=== PATIENT | male | born 1975 | race Caucasian/White ===

== ENCOUNTER 2018-07-21 18:09 | Emergency (ER) | payer BC ==
[2018-07-21] MEDS: Sodium Chloride 0.9% 10 ML Syringe FLUSH PRN ×2 (18:55→20:11)
[2018-07-21] MEDS ORDERED: Sodium Chloride 0.9% 1,000 ML IV ONE (19:46)
[2018-07-21] MEDS ORDERED: Diatrizoate Meglumine/Diatrizoate Sodium 37% 120 ML Bottle PO ONE (19:51)
[2018-07-21] MEDS ORDERED: Iohexol 647 MG/ML 100 ML Bottle IVPUSH ONE (19:51)
--- NOTE | 2018-07-21 20:44 | EDM.PDOC ---
ED HPI GENERAL MEDICAL PROBLEM - General Chief Complaint: Abdominal Pain Stated Complaint: LOWER LEFT ABDOMINAL PAIN Time Seen by Provider: 07/21/18 18:42 Source of Information: Reports: Patient History Limitations: Reports: No Limitations - History of Present Illness INITIAL COMMENTS - FREE TEXT/NARRATIVE: 42-year-old male presents for evaluation and treatment of left lower quadrant abdominal pain. Patient reports that the pain started last evening. Reports a gradual onset. Reports feeling slightly chilled today. Denies any fevers, nausea , vomiting, diarrhea or bloody stools. He denies any urinary symptoms including no dysuria, hematuria or any back pain. States he's had several bowel movement this morning, last around 10 AM. States he never had anything like this before. He's never had a colonoscopy. No previous abdominal surgeries. Duration: Day(s): (2) Left Lower Abdomen Pain Score (Numeric/FACES): 4 - Related Data Allergies Allergy/AdvReac Type Severity Reaction Status Date / Time No Known Allergies Allergy Verified 07/21/18 18:24 Home Meds: Home Meds Calcium Carbonate/Vitamin D3 [Calcium 250+D] 1 each PO DAILY 07/21/18 [History] Multivitamin [Daily Marisabel] 1 tab PO DAILY 07/21/18 [History] Past Medical History - Past Health History Medical/Surgical History: Denies Medical/Surgical History Cardiovascular History: Reports: None Respiratory History: Reports: None Gastrointestinal History: Reports: None Genitourinary History: Reports: None Musculoskeletal History: Reports: Back Pain, Chronic Neurological History: Reports: None Psychiatric History: Reports: None Endocrine/Metabolic History: Reports: None Hematologic History: Reports: None Immunologic History: Reports: None Oncologic (Cancer) History: Reports: None Dermatologic History: Reports: None - Infectious Disease History Infectious Disease History: Reports: None - Past Surgical History HEENT Surgical History: Reports: Adenoidectomy, Oral Surgery, Tonsillectomy Social & Family History - Family History Family Medical History: Noncontributory Cardiac: Reports: Hypertension Oncologic: Reports: Breast, Colon - Tobacco Use Years of Tobacco use: 22 Packs/Tins Daily: 0.2 - Caffeine Use Caffeine Use: Reports: Coffee - Recreational Drug Use Recreational Drug Use: No ED ROS GENERAL - Review of Systems Review Of Systems: See Below Constitutional: Reports: Chills. Denies: Fever, Decreased Appetite GI/Abdominal: Reports: Abdominal Pain (LLQ). Denies: Bloody Stool, Diarrhea, Hematochezia, Melena, Nausea, Vomiting : Reports: No Symptoms. Denies: Dysuria, Hematuria Musculoskeletal: Denies: Back Pain ED EXAM, GI/ABD - Physical Exam Exam: See Below Exam Limited By: No Limitations General Appearance: Alert, WD/WN, No Apparent Distress Respiratory/Chest: No Respiratory Distress, Lungs Clear, Normal Breath Sounds Cardiovascular: Normal Peripheral Pulses, Regular Rate, Rhythm, No Murmur GI/Abdominal Exam: Normal Bowel Sounds, Soft, Guarding (LLQ), Rebound, Tender ( LLQ) Neurological: Alert, Oriented, Normal Cognition Psychiatric: Normal Affect, Normal Mood Skin Exam: Warm, Dry, Normal Color Course - Vital Signs Last Recorded V/S: Last Vital Signs Temp 98.0 F 07/21/18 18:28 Pulse 76 07/21/18 18:28 Resp 16 07/21/18 18:28 BP 128/85 07/21/18 18:28 Pulse Ox 97 07/21/18 18:28 - Orders/Labs/Meds Labs: Laboratory Tests 07/21/18 07/21/18 07/21/18 Range/Units 18:50 18:50 19:54 WBC 13.84 H (4.23-9.07) K/mm3 RBC 4.88 (4.63-6.08) M/mm3 Hgb 14.0 (13.7-17.5) gm/L Hct 40.7 (40.1-51.0) % MCV 83.4 (79.0-92.2) fl MCH 28.7 (25.7-32.2) pg MCHC 34.4 (32.2-35.5) g/dl RDW Std Deviation 38.9 (35.1-43.9) fL Plt Count 238 (163-337) K/mm3 MPV 9.3 L (9.4-12.3) fl Neutrophils % (Manual) 71 H (40-60) % Band Neutrophils % 0 (0-10) % Lymphocytes % (Manual) 18 L (20-40) % Atypical Lymphs % 0 % Monocytes % (Manual) 11 H (2-10) % Eosinophils % (Manual) 0 L (0.8-7.0) % Basophils % (Manual) 0 L (0.2-1.2) Toxic Granulation 2+ moderate Platelet Estimate Adequate Plt Morphology Comment Normal RBC Morph Comment Normal Sodium 140 (136-145) mEq/L Potassium 3.5 (3.5-5.1) mEq/L Chloride 104 (98-107) mEq/L Carbon Dioxide 26 (21-32) mEq/L Anion Gap 13.5 (5-15) BUN 13 (7-18) mg/dL Creatinine 1.0 (0.7-1.3) mg/dL Est Cr Clr Drug Dosing 122.51 mL/min Estimated GFR (MDRD) > 60 (>60) mL/min BUN/Creatinine Ratio 13.0 L (14-18) Glucose 97 (74-106) mg/dL Calcium 8.8 (8.5-10.1) mg/dL Total Bilirubin 0.8 (0.2-1.0) mg/dL AST 20 (15-37) U/L ALT 45 (16-63) U/L Alkaline Phosphatase 67 (46-116) U/L C-Reactive Protein 5.8 H* (<1.0) mg/dL Total Protein 7.3 (6.4-8.2) g/dl Albumin 3.8 (3.4-5.0) g/dl Globulin 3.5 gm/dL Albumin/Globulin Ratio 1.1 (1-2) Urine Color Yellow (Yellow) Urine Appearance Clear (Clear) Urine pH 6.5 (5.0-8.0) Ur Specific [place] 1.025 (1.005-1.030) Urine Protein 1+ H (Negative) Urine Glucose (UA) Negative (Negative) Urine Ketones Negative (Negative) Urine Occult Blood Negative (Negative) Urine Nitrite Negative (Negative) Urine Bilirubin Negative (Negative) Urine Urobilinogen 0.2 (0.2-1.0) Ur Leukocyte Esterase Negative (Negative) Urine RBC Not seen (0-5) /hpf Urine WBC 0-5 (0-5) /hpf Ur Epithelial Cells Not seen (0-5) /hpf Urine Bacteria Few (FEW) /hpf Urine Mucus Moderate H (FEW) /hpf Meds: Medications Discontinued Medications Generic Name Dose Route Start Last Admin Trade Name Freq PRN Reason Stop Dose Admin Diatrizoate Meglum/Diatrizoate Sod 90 ml 07/21/18 19:51 07/21/18 20:08 Gastrografin 37% PO 07/21/18 19:52 90 ml ONETIME ONE Administration Sodium Chloride 1,000 mls @ 999 mls/hr 07/21/18 19:46 07/21/18 19:54 Normal Saline IV 07/21/18 20:46 999 mls/hr ONETIME ONE Administration Iohexol 100 ml 07/21/18 19:51 07/21/18 20:08 Omnipaque-300 IVPUSH 07/21/18 19:52 100 ml ONETIME ONE Administration Levofloxacin 750 mg 07/21/18 21:09 07/21/18 21:16 Levaquin PO 07/21/18 21:10 750 mg NOW STA Administration Metronidazole 500 mg 07/21/18 21:09 07/21/18 21:16 Flagyl PO 07/21/18 21:10 500 mg ONETIME ONE Administration Sodium Chloride 10 ml 07/21/18 18:48 07/21/18 20:11 Saline Flush FLUSH 10 ml ASDIRECTED PRN Administration Keep Vein Open - Radiology Interpretation Free Text/Narrative:: CT abdomen and pelvis Technique: Multiple axial sections were obtained from above the dome of the diaphragm inferiorly through the pubic symphysis. Intravenous and oral contrast was utilized. Delayed images were obtained through the bladder. Comparison: No prior abdominal imaging is available. Findings: Inflammatory change is noted around the sigmoid colon near the junction to the descending colon. There appears to be a single diverticulum in this area and findings most likely due to diverticulitis. This diverticulitis is causing mild bowel wall thickening in this area. No fluid collections of abscess are seen. Small portion of the visualized lung bases are clear. Liver shows no focal abnormality. Spleen appears within normal limits. Adrenal glands show no nodule. Cyst is noted within the left kidney measuring approximately 2.7 cm. Kidneys are otherwise unremarkable. Pancreas appears within normal limits. Gallbladder contains no calcified gallstones. Aorta shows no aneurysm. No retroperitoneal adenopathy or mesenteric abnormalities are seen. Appendix is normal in size. No pelvic mass or adenopathy is identified. Delayed images shows contrast within the distal ureters and bladder. Bone window settings were reviewed which appear within normal limits for the patient's age. Incidental small fat-containing umbilical hernia is noted. Impression: 1. Inflammatory change around the sigmoid colon near the junction to the descending colon. Findings most likely due to diverticulitis as described above. No diverticular abscess is seen at this time. 2. Other incidental findings as noted above. No other acute abnormality is identified. - Re-Assessments/Exams Free Text/Narrative Re-Assessment/Exam: 07/21/18 21:11 Reviewed the labs and imaging with the patient. We'll start on Flagyl and levaquin for diverticulitis. Percocet given for pain. Will discharge home. Offered admission but patient feels comfortable going home with close follow-up in the clinic on Wednesday. Discharge instructions as documented. Departure - Departure Time of Disposition: 21:11 Disposition: Home, Self-Care 01 Condition: Fair Clinical Impression: Diverticulitis - Discharge Information *PRESCRIPTION DRUG MONITORING PROGRAM REVIEWED*: No *COPY OF PRESCRIPTION DRUG MONITORING REPORT IN PATIENT LEVI: No Instructions: Diverticulitis, [id number], Diverticulitis Referrals: Love Hurt, LAW ENFORCEMENT OFFICER [Primary Care Provider] - Forms: ED Department Discharge Additional Instructions: Prescription for Levaquin 750 1 tab daily for 10 days and metronidazole 500 mg 1 tab every 8 hours for 10 days called into [facility]. patient given a prescription for Percocet 5-35 one to 2 tabs every 4-6 hours as needed for pain. #15. Recommend a bland diet over the weekend. [place] diet recommendations include bread, rice, applesauce, toast, Soup broth, bananas, yogurt etc. Follow-up with your primary care provider on Wednesday for recheck of your symptoms. take the antibiotic as prescribed. Levaquin 1 tab daily. your first dose was given in the ED tonight. Take the metronidazole 1 tab every 8 hours. your first dose was given in the ED tonight. Please return to the ER if your symptoms change or worsen.
--- NOTE | 2018-07-21 20:52 | CT ---
CT abdomen and pelvis Technique: Multiple axial sections were obtained from above the dome of the diaphragm inferiorly through the pubic symphysis. Intravenous and oral contrast was utilized. Delayed images were obtained through the bladder. Comparison: No prior abdominal imaging is available. Findings: Inflammatory change is noted around the sigmoid colon near the junction to the descending colon. There appears to be a single diverticulum in this area and findings are most likely due to diverticulitis. This diverticulitis is causing mild bowel wall thickening in the area. No fluid collections to suggest abscess are seen. Small portion of the visualized lung bases are clear. Liver shows no focal abnormality. Spleen appears within normal limits. Adrenal glands show no nodule. Cyst is noted within the left kidney measuring approximately 2.7 cm. Kidneys are otherwise unremarkable. Pancreas appears within normal limits. Gallbladder contains no calcified gallstones. Aorta shows no aneurysm. No retroperitoneal adenopathy or mesenteric abnormalities are seen. Appendix is normal in size. No pelvic mass or adenopathy is identified. Delayed images show contrast within the distal ureters and bladder. Bone window settings were reviewed which appear within normal limits for the patient's age. Incidental small fat-containing umbilical hernia is noted. Impression: 1. Inflammatory change around the sigmoid colon near the junction to the descending colon. Findings most likely due to diverticulitis as described above. No diverticular abscess is seen at this time. 2. Other incidental findings as noted above. No other acute abnormality is identified. Diagnostic code #3
[2018-07-21] MEDS ORDERED: Levofloxacin 750 MG Tab PO STA (21:09)
[2018-07-21] MEDS ORDERED: metroNIDAZOLE 500 MG Tab PO ONE (21:09)
== END 2018-07-21 21:31 | disposition home or self-care (01) ==
LOC: JD.ED 18:09
DX: K57.32 Diverticulitis of large intestine without perforation or abscess without bleeding (principal); F17.210 Nicotine dependence, cigarettes, uncomplicated; Z79.899 Other long term (current) drug therapy
CPT/HCPCS: 36415; 74177; 80053; 81001; 85007; 85027; 86140; 96360; 99284; A9270; J7040; Q9963; Q9967

== ENCOUNTER 2019-12-05 10:24 | Emergency (ER) | payer BC ==
[2019-12-05] MEDS ORDERED: HYDROmorphone 1 MG/ML Syringe IM ONE (10:42)
[2019-12-05] MEDS ORDERED: Ketorolac 60 MG/2 ML SDV IM ONE (10:42)
[2019-12-05] MEDS ORDERED: Cyclobenzaprine 10 MG Tab PO ONE (10:42)
--- NOTE | 2019-12-05 11:54 | EDM.PDOC ---
ED HPI GENERAL MEDICAL PROBLEM - General Chief Complaint: Back Pain or Injury Stated Complaint: BACK PAIN/RIGHT LEG PAIN Time Seen by Provider: 12/05/19 10:38 Source of Information: Reports: Patient History Limitations: Reports: No Limitations - History of Present Illness INITIAL COMMENTS - FREE TEXT/NARRATIVE: The patient presents with right low back pain and right leg pain. 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 He has a history of low back pain. He has never had an MRI before. He has some numbness at times to his right leg and stiffness. He has no bowel or bladder problems. Onset: Sudden Duration: Minutes: Location: Reports: Back, Lower Extremity, Right Quality: Reports: Sharp Severity: Severe Improves with: Reports: Immobilization Worsens with: Reports: Movement Context: Denies: Trauma Associated Symptoms: Reports: No Other Symptoms Lower Back Pain Score (Numeric/FACES): 9 - Related Data Allergies Allergy/AdvReac Type Severity Reaction Status Date / Time No Known Allergies Allergy Verified 12/05/19 10:32 Home Meds: Home Meds Calcium Carbonate/Vitamin D3 [Calcium 250+D] 1 each PO DAILY 07/21/18 [History] Multivitamin [Daily Marisabel] 1 tab PO DAILY 07/21/18 [History] Cyclobenzaprine [Flexeril] 10 mg PO TID PRN #20 tab 12/05/19 [Rx] Hydrocodone/Acetaminophen [Hydrocodone-Acetamin 5-325 mg] 1 - 2 each PO Q6HR PRN #20 tablet 12/05/19 [Rx] Past Medical History - Past Health History Medical/Surgical History: Denies Medical/Surgical History Cardiovascular History: Reports: None Respiratory History: Reports: None Gastrointestinal History: Reports: Other (See Below) Other Gastrointestinal History: diverticulitis Genitourinary History: Reports: None Musculoskeletal History: Reports: Back Pain, Chronic, Fracture Neurological History: Reports: Head Trauma Psychiatric History: Reports: Addiction Other Psychiatric History: nicotine Endocrine/Metabolic History: Reports: None Hematologic History: Reports: None Immunologic History: Reports: None Oncologic (Cancer) History: Reports: None Dermatologic History: Reports: None - Infectious Disease History Infectious Disease History: Reports: Chicken Pox - Past Surgical History HEENT Surgical History: Reports: Adenoidectomy, Oral Surgery, Tonsillectomy Social & Family History - Family History Family Medical History: Noncontributory Cardiac: Reports: Hypertension Oncologic: Reports: Breast, Colon - Caffeine Use Caffeine Use: Reports: Coffee, Soda - Recreational Drug Use Recreational Drug Use: No ED ROS GENERAL - Review of Systems Review Of Systems: See Below Constitutional: Reports: No Symptoms HEENT: Reports: No Symptoms Respiratory: Reports: No Symptoms Cardiovascular: Reports: No Symptoms Endocrine: Reports: No Symptoms GI/Abdominal: Reports: No Symptoms : Reports: No Symptoms Musculoskeletal: Reports: Back Pain, Other (right leg pain) Skin: Reports: No Symptoms ED EXAM,LOWER BACK PAIN/INJURY - Physical Exam Exam: See Below Exam Limited By: No Limitations General Appearance: Alert, No Apparent Distress Ears: Normal External Exam Nose: Normal Inspection Head: Atraumatic, Normocephalic Neck: Normal Inspection Respiratory/Chest: No Respiratory Distress, Lungs Clear, Normal Breath Sounds Cardiovascular: Regular Rate, Rhythm, No Edema, No Murmur GI/Abdominal: Soft, Non-Tender, No Organomegaly, No Mass Back Exam: No: Muscle Spasm Extremities: Normal Inspection Neurological: Alert, No Motor/Sensory Deficits, Oriented x 3 Course - Vital Signs Last Recorded V/S: Last Vital Signs Temp 97.0 F 12/05/19 10:30 Pulse 55 L 12/05/19 10:30 Resp 20 12/05/19 10:30 BP 153/89 H 12/05/19 10:30 Pulse Ox 100 12/05/19 10:30 - Orders/Labs/Meds Meds: Medications Discontinued Medications Generic Name Dose Route Start Last Admin Trade Name Mc PRN Reason Stop Dose Admin Hydrocodone Bitart/Acetaminophen 2 tab 12/05/19 12:06 12/05/19 12:42 [place] 325-5 Mg PO 12/05/19 12:07 2 tab ONETIME ONE Administration Cyclobenzaprine HCl 10 mg 12/05/19 10:42 12/05/19 10:58 Flexeril PO 12/05/19 10:43 10 mg ONETIME ONE Administration Hydromorphone HCl 1 mg 12/05/19 10:42 12/05/19 10:55 Dilaudid IM 12/05/19 10:43 1 mg ONETIME ONE Administration Ketorolac Tromethamine 60 mg 12/05/19 10:42 12/05/19 10:57 Toradol IM 12/05/19 10:43 60 mg ONETIME ONE Administration - Re-Assessments/Exams Free Text/Narrative Re-Assessment/Exam: 12/05/19 11:53 I ordered dilaudid 1mg IM, toradol 60mg IM and flexeril 10mg PO. 12/05/19 12:18 He tried to get up and he had more pain so I ordered norco 10mg/650mg PO. 12/05/19 13:44 He is feeling a little better. I have ordered an MRI for tomorrow. They had nothing open today. I will discharge him home with flexeril and hydrocodone. Departure - Departure Time of Disposition: 13:45 Disposition: Home, Self-Care 01 Condition: Good Clinical Impression: Sciatica Qualifiers: Laterality: right Qualified Code(s): M54.31 - Sciatica, right side - Discharge Information *PRESCRIPTION DRUG MONITORING PROGRAM REVIEWED*: Not Applicable *COPY OF PRESCRIPTION DRUG MONITORING REPORT IN PATIENT LEVI: Not Applicable Prescriptions: Cyclobenzaprine [Flexeril] 10 mg PO TID PRN #20 tab PRN Reason: Pain Hydrocodone/Acetaminophen [Hydrocodone-Acetamin 5-325 mg] 1 - 2 each PO Q6HR PRN #20 tablet PRN Reason: Pain Referrals: PCP,None [Primary Care Provider] - Terri Miller NP [Nurse Practitioner] - 1 Week Forms: ED Department Discharge Additional Instructions: Take motrin or aleve for pain. You may also use flexeril and hydrocodone. I have ordered an MRI of your lumbar spine for tomorrow at 3pm. Please come at 2:30 to register. Please return if you are worse. Sepsis Event Note (ED) - Evaluation Sepsis Screening Result: No Definite Risk - Focused Exam Vital Signs: Vital Signs Temp Pulse Resp BP Pulse Ox 12/05/19 10:30 97.0 F 55 L 20 153/89 H 100
[2019-12-05] MEDS ORDERED: Acetaminophen/HYDROcodone 325-5 MG Tab PO ONE (12:06)
== END 2019-12-05 14:50 | disposition home or self-care (01) ==
LOC: JD.ED 10:24
DX: M54.41 Lumbago with sciatica, right side (principal)
CPT/HCPCS: 96372; 99283; A9270; J1170; J1885